=== PATIENT | female | born 1965 | race Caucasian/White ===

== ENCOUNTER 2016-06-28 17:36 | Emergency (ER) | payer MEDICARE, OTHER ==
--- NOTE | ~2016-06-28 | CT4 ---
[facility] A Service of [facility] RADIOLOGY TEXT RESULTS PATIENT: PAUL SANTIAGO LOCATION: [facility] : 61 UNIT #: [id number] AGE: [address]: Carlo Canales MD SEX: F ORDER DR: [id number] [facility] [address] [facility]. [place], [place] [address] [id number] MR#: [id number] Acc #: [id number] NAME: PAUL SANTIAGO. : 1965 SEX: F STUDY DATE/TIME: 06/28/2016 17:01 UNIT: [facility] ROOM: STUDY DESCRIPTION: CT Abd and Pelv Wo Cont Attending Physician: Carlo Canales M.D. Ordering Physician: Carlo Canales M.D. Primary Care Physician: [facility] IMAGING REPORT This report is preliminary unless electronic signature is present EXAM CT scan of the abdomen and pelvis without contrast 06/28/2016 HISTORY Right flank pain for 5 days. Evaluate for obstructing renal calculus. TECHNIQUE This CT exam was performed with one or more of the following radiation dose reduction techniques: automatic exposure control, adjustment of mA and/or kV according to patient size, and iterative reconstruction. Spiral CT was performed through the abdomen and pelvis without oral or intravenous contrast administration using renal stone protocol. FINDINGS Abdomen: There is no obstructing renal or ureteral calculus. There is fatty infiltration of the liver. The spleen, pancreas and adrenal glands are normal. Gallbladder is surgically absent. Pelvis: The gut, mesenteric and navid structures are normal. There is no free fluid in the abdomen or pelvis. IMPRESSION 1. No obstructing renal or ureteral calculus. 2. Fatty infiltration of the liver. 3. Surgical absence of the gallbladder Dictated by... Geovanny Morales M.D. THIS IS AN ELECTRONICALLY VERIFIED REPORT [facility] A Service of [facility] RADIOLOGY TEXT RESULTS PATIENT: PAUL SANTIAGO LOCATION: [facility] : 61 UNIT #: [id number] AGE: [address]: Carlo Canales MD SEX: F ORDER DR: Geovanny Morales M.D. at 06/29/2016 9:03 AM MALIK/jana TD: 06/28/2016 22:03 JOB #: [id number] MEDICAL IMAGING REPORT Page 1 of 1 COPY
[2016-06-28 16:47] LABS: BASOPHIL% 0.4 % (0-2.5); EOSINOPHIL# 0.1 X10e3 (0-0.7); EOSINOPHIL% 1.6 % (0.0-7.0); HEMATOCRIT 37.6 % (35.0-45.0); HEMOGLOBIN 12.4 gm/dL (12.0-16.0); LYMPHOCYTE# 1.7 X10e3 (1.0-3.5); LYMPHOCYTE% 25.9 % (17.0-45.0); MEAN CELL VOLUME 85.8 FL (83-96); MEAN CORPUSCULAR HEMOGLOBIN 28.4 PG (28-34); MEAN CORPUSCULAR HGB CONC 33.1 g/dL (30-36); MEAN PLATELET VOLUME 7.5 FL (6.5-11.5); MONOCYTE# 0.4 X10e3 (0-1.0); NEUTROPHIL# 4.3 X10e3 (1.5-7.1); NEUTROPHIL% 66.1 % (40-75); PLATELET COUNT 206 X10e3 (140-420); RED BLOOD COUNT 4.38 X10e (3.90-5.30); RED CELL DISTRIBUTION WIDTH 13.5 % (11.0-15.5); WHITE BLOOD COUNT 6.5 X10e3 (4.0-10.5)
[2016-06-28 16:48] LABS: DIFF IND NO
[2016-06-28 16:50] LABS: URINE SOURCE CLEAN CATCH
[2016-06-28 17:03] LABS: URINE APPEARANCE CLEAR; URINE BILIRUBIN NEG (NEG); URINE BLOOD TRACE (NEG); URINE COLOR YELLOW; URINE GLUCOSE NEG (NEG); URINE KETONE NEG (NEG); URINE LEUKOCYTE ESTERASE TRACE (NEG); URINE NITRATE NEG (NEG); URINE PH 5.5 (5-8); URINE PROTEIN NEG (NEG); URINE SPECIFIC GRAVITY 1.014 (1.003-1.035)
[2016-06-28 17:05] LABS: ALBUMIN SERUM 4.2 g/dL (3.5-5.0); ALKALINE PHOSPHATASE 86 U/L (32-92); ALT (SGPT) 28 U/L (10-40); AMYLASE 16 U/L (0-46); AST (SGOT) 24 U/L (10-42); BILIRUBIN,TOTAL 0.2 mg/dL (0.2-2.0); BLOOD UREA NITROGEN 17 mg/dL (9-23); BUN/CREATININE RATIO 21.25; CALCIUM SERUM 9.1 mg/dL (8.4-10.2); CARBON DIOXIDE 28 mmol/L (22-31); CHLORIDE 107 mmol/L (100-111); CREATININE SERUM 0.8 mg/dL (0.6-1.4); GLOM FILT RATE Estimated 84.8 mL/min (>60); GLUCOSE FASTING 95 mg/dL (70-110); LIPASE 24 U/L (22-51); POTASSIUM 3.9 mmol/L (3.5-5.1); PROTEIN TOTAL SERUM 6.9 g/dL (6.0-8.3); SODIUM 142 mmol/L (135-145)
[2016-06-28 17:06] LABS: BILIRUBIN, DIRECT <0.1 mg/dL (0.0-0.2); BILIRUBIN,INDIRECT 0.1 mg/dL (0.0-0.9)
[2016-06-28 17:06] LABS: URBCS1 AUWI 0-2 /[HPF] (0-2); URINE BACTERIA AUWI NEG (NEGATIVE); URINE SQUAMOUS EPITHELIAL CELL FEW /[HPF]
[2016-06-28 17:27] LABS: CULTURE INDICATED? NO
[~2016-06-28 17:36] MED LIST: ABILIFY; ALBUTEROL MININEB NEB; ALBUTEROL17 GM INH; AMOXICILLIN875 MG PO; BACLOFEN10 MG PO; BACLOFEN20 M1; BACLOFEN20 M1 PO; BACLOFEN20 MG PO; BACTRIM DS TABL1 TAB PO; CIPRO PO; CYMBALTA; CYMBALTA PO; DILANTIN PO; EFFEXOR PO; EFFEXOR XR PO; FAMOTIDINE; FLAGYL PO; FLONASE16 GM; HCTZ; HYDROCHLOROTHIA25 MG PO; HYDROCODON-ACE1 EAC5; HYDROCODON-ACE1 EAC5 PO; HYDROMET SYRUP480 ML PO; IBUPROFEN800 MG PO; INDOMETHACIN75 MG PO; K-DUR20 ME1 PO; KCL PO; KLONOPIN PO; KLONOPIN1 MG; KLONOPIN1 MG PO; LAMICTAL; LAMICTAL PO; LORTAB 10/500 T1 TAB PO; LORTAB PO; MEDROL DOSEPAK4 MG PO; MEDROL PO; METRONIDAZOLE PO; MICRO-K PO; MICRO-K10 MEQ PO; NABUMETONE; NAPROSYN500 MG PO; NORCO 10/325 TA1 TAB PO; OPTIVAR OPHTHA1 DROP; PAMELOR; PAMELOR PO; PEPCID PO; PHENERGAN NG; PHENERGAN25 MG PO; PHENYLEPHRINE PO; POTASSIUM CHLO10 ME1; PREDNISONE PO; PRILOSEC PO; PROVENTIL INH0.5 ML; PROVENTIL17 GM; PROZAC; PROZAC PO; SEROQUEL; SEROQUEL PO; SINGULAIR; THEO-DUR300 MG; THEO-DUR300 MG DOB; THEOPHYLLIN; THEOPHYLLIN PO; TOPAMAX; TOPAMAX PO; TRAMADOL HCL50 M1; TRAZODONE HCL100 MG; TRAZODONE HCL100 MG PO; TRAZODONE PO; ULTRAM PO; VICODIN 5/500 T1 TAB PO; WELLBUTRIN SR; WELLBUTRIN SR PO; XOPENEX; ZOFRANODT PO
== END 2016-06-28 18:10 | disposition home or self-care (01) ==
LOC: CED 17:36
PROVIDERS: Emergency Medicine
DX: R10.9 Unspecified abdominal pain (principal); J45.909 Unspecified asthma, uncomplicated; Z90.710 Acquired absence of both cervix and uterus; F17.200 Nicotine dependence, unspecified, uncomplicated; Z91.040 Latex allergy status; Z88.8 Allergy status to other drugs, medicaments and biological substances
CPT/HCPCS: 36415; 74176; 80048; 80076; 81003; 82150; 83690; 85025; 96374; 99284; J1885